=== PATIENT | female | born 1990 | race Caucasian/White ===

== ENCOUNTER → 2024-12-11 | Day surgery (SDC) | payer BC, MEDICAID ==
[~2024-12-11] MED LIST: Bupivacaine 0.5% 30 ML SDV ONE; Dexamethasone 4 MG/ML SDV ONE; Glycopyrrolate 0.2 MG/ML 5 ML MDV ONE; Lactated Ringers 1,000 ML ONE; Midazolam 1 MG/ML 2 ML SDV ONE; Neostigmine Methylsulfate 10 MG/10 ML MDV ONE; Ondansetron 4 MG/2 ML SDV ONE; Propofol 200 MG/20 ML SDV ONE; Rocuronium 50 MG/5 ML Vial ONE; Succinylcholine 200 MG/10 ML MDV ONE; fentaNYL 100 MCG/2 ML SDV ONE; fentaNYL 250 MCG/5 ML SDV ONE
[2024-12-11 06:58] LABS: HEMATOCRIT 41.4 % (34.3-46.0); HEMOGLOBIN 14.5 g/dL (11.2-15.5); MEAN CORPUSCULAR HEMOGLOBIN 30.1 pg (31.6-35.5); MEAN CORPUSCULAR VOLUME 85.9 fL (81.4-99.0); RED BLOOD CELL COUNT 4.82 M/uL (3.77-5.24); WHITE BLOOD CELL COUNT,WBC 12.5 K/uL (3.2-11.0)
[2024-12-11 07:12] LABS: BLOOD UREA NITROGEN,BUN 11 mg/dL (7-18); CARBON DIOXIDE,CO2 26 mmol/L (21-32); CHLORIDE,CL 100 mmol/L (100-108); CREATININE 0.9 mg/dL (0.6-1.0); ESTIMATED GFR 86 mL/min (>60); GLUCOSE RANDOM 95 mg/dL (74-106); POTASSIUM,K 3.5 mmol/L (3.6-5.2); SODIUM,NA 139 mmol/L (140-148)
[2024-12-11 07:13] LABS: ANION GAP 16.5 mmol/L (5.0-14.0)
[2024-12-11] MEDS: Nozin Nasal Sanitizer NASBOTH ONE (07:18)
[2024-12-11] MEDS: Lactated Ringers 1,000 ML IV SCH (07:32)
[2024-12-11] MEDS: ceFAZolin 2 GM in Premix Bag 1 BAG IV ONE (07:55)
[2024-12-11] MEDS: Acetaminophen/oxyCODONE 325-5 MG Tab PO PRN (12:57)
== END ==
LOC: JP.SDS 06:30
PROVIDERS: ATTEND Specialist
DX: M75.101 Unspecified rotator cuff tear or rupture of right shoulder, not specified as traumatic (principal); M75.41 Impingement syndrome of right shoulder
CPT/HCPCS: 01630; 29826; 29827; 36415; 80048; 81025; 85027; A9270; C1713; J0330; J0665; J0690; J1100; J1596; J2250; J2405; J2704; J2710; J3010; J7120; J3490